=== PATIENT | female | born 1955 | race Caucasian/White ===

== ENCOUNTER → 2016-12-27 | Outpatient (CLI) | payer OTHER ==
[~2016-12-27] MED LIST: AMOX TR K CLV PO; CARBAMAZEPINE200 M3 PO; HCTZ PO; IBUPROFEN800 MG PO; LANTUS100 U/ML SUBQ; LIPITOR PO; LISINOPRIL30 MG PO; METFORMIN HCL1000 M1 PO; PROTONIX PO; TRAZODONE PO
--- NOTE | ~2016-12-27 | US77 ---
[facility] RADIOLOGY TEXT RESULTS PATIENT: MARY JANE PRABHAKAR LOCATION: [facility] : 57 UNIT #: [id number] AGE: [address]: Trent Llamas MD SEX: F ORDER DR: [id number] [facility] [address] [place], [place] [address] [id number] O MR#: [id number] Acc #: [id number] NAME: MARY JANE PRABHAKAR : 1955 SEX: F STUDY DATE/TIME: 12/27/2016 12:59 UNIT: [facility] ROOM: STUDY DESCRIPTION: US Kidney Bilateral Complete Attending Physician: Trent Llamas M.D. Referring Physician: Trent Llamas M.D. Ordering Physician: Trent Llamas M.D. Primary Care Physician: Ashleigh Soliz A.P.R.N. MEDICAL IMAGING REPORT This report is preliminary unless electronic signature is present EXAM Renal ultrasound 12/27/2016 INDICATIONS Proteinuria. PROCEDURE Jackson-scale and Doppler imaging of the kidneys and bladder. COMPARISON None FINDINGS Right kidney measures 7.8 cm. Cortical thickness is 10 mm. Slightly increased echotexture. Incidentally noted gallstones. Bladder is unremarkable. Left kidney measures 12.6 cm. Cortical thickness is up to 2 cm. There is no hydronephrosis. IMPRESSION Small right kidney. Right renal cortical thickness is within normal limits but is significantly thinner than the left kidney. There is no hydronephrosis. Dictated by... Yusef Rivers M.D. THIS IS AN ELECTRONICALLY VERIFIED REPORT Yusef Rivers M.D. at 12/28/2016 7:37 AM Boo TD: 12/27/2016 15:38 JOB #: [id number] [facility] RADIOLOGY TEXT RESULTS PATIENT: MARY JANE PRABHAKAR LOCATION: [facility] : 57 UNIT #: [id number] AGE: [address]: Trent Llamas MD SEX: F ORDER DR: MEDICAL IMAGING REPORT COPY
[2016-12-27 12:37] LABS: BASOPHIL# 0.1 X10e3 (0-0.3); BASOPHIL% 1.1 % (0-2.5); EOSINOPHIL# 0.5 X10e3 (0-0.7); EOSINOPHIL% 5.7 % (0.0-7.0); HEMATOCRIT 35.2 % (35.0-45.0); HEMOGLOBIN 11.3 gm/dL (12.0-16.0); LYMPHOCYTE# 2.1 X10e3 (1.0-3.5); LYMPHOCYTE% 24.1 % (17.0-45.0); MEAN CELL VOLUME 87.3 FL (83-96); MEAN CORPUSCULAR HEMOGLOBIN 28.1 PG (28-34); MEAN CORPUSCULAR HGB CONC 32.2 g/dL (30-36); MEAN PLATELET VOLUME 12.4 FL (6.5-11.5); MONOCYTE# 0.6 X10e3 (0-1.0); MONOCYTE% 7.1 % (3.0-12.0); NEUTROPHIL# 5.4 X10e3 (1.5-7.1); RED BLOOD COUNT 4.03 X10e (3.90-5.30); RED CELL DISTRIBUTION WIDTH 15.1 % (11.0-15.5); WHITE BLOOD COUNT 8.7 X10e3 (4.0-10.5)
[2016-12-27 12:44] LABS: URINE APPEARANCE CLEAR; URINE BILIRUBIN NEG (NEG); URINE BLOOD NEG (NEG); URINE COLOR YELLOW; URINE GLUCOSE >1000 MG/DL (NEG); URINE KETONE NEG (NEG); URINE LEUKOCYTE ESTERASE NEG (NEG); URINE NITRATE NEG (NEG); URINE PH 6.5 (5-8); URINE PROTEIN TRACE (NEG); URINE SPECIFIC GRAVITY 1.015 (1.003-1.035); URINE UROBILINOGEN 0.2 MG/DL (NEG)
[2016-12-27 12:46] LABS: URINE SOURCE CLEAN CATCH
[2016-12-27 12:53] LABS: DIFF IND YES; PLATELET COUNT 75 X10e3 (140-420)
[2016-12-27 12:58] LABS: PLATELET ESTIMATE DECREASED (NORMAL)
[2016-12-27 12:59] LABS: RBC NORMAL YES
[2016-12-27 13:04] LABS: ALBUMIN SERUM 3.8 g/dL (3.5-5.0); BILIRUBIN,TOTAL 0.4 mg/dL (0.2-2.0); BUN/CREATININE RATIO 20.9; CALCIUM SERUM 8.6 mg/dL (8.4-10.2); CREATININE SERUM 1.1 mg/dL (0.6-1.4); GLOM FILT RATE Estimated 53.8 mL/min (>60); POTASSIUM 4.7 mmol/L (3.5-5.1); PROTEIN TOTAL SERUM 7.1 g/dL (6.0-8.3)
[2016-12-27 13:09] LABS: CREATININE,RANDOM URINE 25 mg/dL; TOTAL PROTEIN,RANDOM URINE 31 mg/dl (<10)
== END | disposition home or self-care (01) ==
LOC: CGUS 12:10
PROVIDERS: Internal Medicine Nephrology
DX: R80.9 Proteinuria, unspecified (principal); N27.0 Small kidney, unilateral
CPT/HCPCS: 36415; 76770; 80053; 81003; 82570; 84156; 85025